=== PATIENT | male | born 1990 | race African-American/Black ===

== ENCOUNTER 2018-12-31 23:15 | Emergency (ER) | payer OTHER ==
[~2018-12-31] VITALS: Ht 185.4 cm; Wt 113.4 kg
[2018-12-31 23:15] VITALS: BP 118/65
--- NOTE | 2018-12-31 23:42 | PHYS DOC ---
Past Medical History Past Medical History: Anxiety, Depression Additional Past Medical Histor: VSD Additional Past Surgical Histo: VSD REPAIR AT 7YO Alcohol Use: Occasionally Drug Use: None Adult General Chief Complaint Chief Complaint: SORE THROAT HPI HPI Patient is a 28 year old male who presents with sore throat and a fever for 3 days. Review of Systems Review of Systems Constitutional: Reports fever Eyes: Denies change in visual acuity, redness, or eye pain [] HENT: Reports sore throat. Denies nasal congestion Respiratory: Denies cough or shortness of breath [] Cardiovascular: No additional information not addressed in HPI [] GI: Denies abdominal pain, nausea, vomiting, bloody stools or diarrhea [] : Denies dysuria or hematuria [] Musculoskeletal: Denies back pain or joint pain [] Integument: Denies rash or skin lesions [] Neurologic: Denies headache, focal weakness or sensory changes [] All other systems were reviewed and found to be within normal limits, except as documented in this note. Current Medications Current Medications Current Medications Medications (Trade) Dose Ordered Sig/Dominique Start Time Stop Time Status Last Admin Dose Admin Penicillin G Benzathine (Bicillin L-A) 1,200,000 unit 1X ONCE 12/31/18 23:30 12/31/18 23:31 UNV Physical Exam Physical Exam Constitutional: Well developed, well nourished, no acute distress, non-toxic appearance. [] HENT: Normocephalic, atraumatic, bilateral external ears normal, oropharynx moist, no oral exudates, nose normal. [] +2 tonsils with mild erythema and exudate bilaterally. Midline uvula. +2 anterior cervical adenopathy Eyes: PERRLA, EOMI, conjunctiva normal, no discharge. [] Neck: Normal range of motion, no tenderness, supple, no stridor. [] Cardiovascular:Heart rate regular rhythm, no murmur [] Lungs & Thorax: Bilateral breath sounds clear to auscultation [] Abdomen: Bowel sounds normal, soft, no tenderness, no masses, no pulsatile masses. [] Skin: Warm, dry, no erythema, no rash. [] Back: No tenderness, no CVA tenderness. [] Extremities: No tenderness, no cyanosis, no clubbing, ROM intact, no edema. [] Neurologic: Alert and oriented X 3, normal motor function, normal sensory function, no focal deficits noted. [] Psychologic: Affect normal, judgement normal, mood normal. [] Current Patient Data Vital Signs Vital Signs Date Time Temp Pulse Resp B/P (MAP) Pulse Ox O2 Delivery O2 Flow Rate FiO2 12/31/18 23:15 102.6 123 18 118/65 (82) 95 Room Air 102.6 EKG EKG [] Radiology/Procedures Radiology/Procedures [] Course & Med Decision Making Course & Med Decision Making Pertinent Labs and Imaging studies reviewed. (See chart for details) This is a 28-year-old male patient presented to the ED today with a physical exam consistent tonsillitis temperature 102.6. Patient was given Bicillin injection per his choice. Saltwater gargles recommended. Tylenol every 4 hours and Motrin every 6 hours. Follow-up with primary care doctor in 1-2 weeks. Provided return precautions. Dragon Disclaimer Dragon Disclaimer This electronic medical record was generated, in whole or in part, using a voice recognition dictation system. Departure Departure Impression: Primary Impression: Fever Additional Impression: Acute tonsillitis Disposition: 01 HOME, SELF-CARE Condition: STABLE Referrals: OPAL FRANZ MD Follow-up in one week Patient Instructions: Fever, Adult, Tonsillitis Additional Instructions: You were evaluated for tonsillitis and given Bicillin injection. Take Tylenol every 4 hours and Motrin every 6 hours. Push fluids. Saltwater gargles for sore throat. Follow-up with the primary care doctor in one week or the provided ENT. Come back to the ED at any point symptoms worsen. Problem Qualifiers Primary Impression: Fever Fever type: unspecified Qualified Codes: R50.9 - Fever, unspecified Additional Impression: Acute tonsillitis Pharyngitis/tonsillitis etiology: unspecified etiology Qualified Codes: J03.90 - Acute tonsillitis, unspecified RANJIT COFFMAN APRN Dec 31, 2018 23:42
[2018-12-31] MEDS ORDERED: PENICILLIN G BENZATHINE LA 1,200,000 UNIT/2 ML DISP.SYRIN. IM ONE (23:45)
== END 2018-12-31 23:53 | disposition home or self-care (01) ==
LOC: ER 23:15 → MERGE 23:15 → ER 23:53
DX: J03.90 Acute tonsillitis, unspecified (principal)
CPT/HCPCS: 96372; 99283; J0561